=== PATIENT | male | born 1975 | race Caucasian/White ===

== ENCOUNTER → 2022-06-30 | Outpatient (CLI) | payer OTHER ==
--- NOTE | 2022-06-30 12:13 | Diagnostic Imaging Report ---
Indication: Pain, post surgical follow-up COMPARISON: None available TECHNIQUE: 3 radiographs lumbar spine dated 06/30/2022. FINDINGS: For the sake of this examination, it appears there are 6 lumbar type vertebral bodies. Posterior fusion with bilateral pedicle screws and associated interbody disc device is present at the L5/L6 level. No evidence of hardware complication. Stimulator device is present with the leads extending to overlie the central spinal canal extending superiorly outside the [id number]. Alignment of the lumbar spine is well maintained. Vertebral body heights are well-maintained. Moderate disc space height loss at L6/S1. Moderate disc space height loss with postsurgical changes at L5/L6. The sacroiliac joints are intact. No new fracture or dislocation. No destructive osseous process. IMPRESSION: 6 lumbar type vertebral bodies are suggested on this examination with postsurgical changes at L5/L6 without hardware complication or acute osseous abnormality. Additional postsurgical and mild degenerative changes as described above. Dictated by: Dictated on workstation # [id number]
--- NOTE | 2022-06-30 12:16 | Diagnostic Imaging Report ---
INDICATION: Pain COMPARISON: None available TECHNIQUE: 4 radiographs of bilateral knees dated 06/30/2022. FINDINGS: Right: No acute fracture or dislocation. No destructive osseous process. Joint spaces are well maintained. No significant osteophytosis. No knee joint effusion. No suspicious radiopaque foreign body. Left: No acute fracture or dislocation. No destructive osseous process. Mild medial joint space narrowing with minimal osteophytosis. Lateral compartment is well maintained. Tiny osseous excrescence measuring 0.8 cm is seen arising from the posterior aspect of the fibular neck which appears to be in continuity with the cortex and underlying medullary cavity without associated periosteal reaction. No knee joint effusion. No suspicious radiopaque foreign body. IMPRESSION: No acute osseous abnormality with minimal degenerative changes, greatest within the medial compartment of the left knee. Small osseous excrescence arising from the left fibular neck posteriorly is felt to relate to an osteochondroma. Dictated by: Dictated on workstation # [id number]
== END ==
LOC: RAD 09:48
PROVIDERS: ATTEND Family Medicine
DX: Z02.71 Encounter for disability determination (principal); M54.50 Low back pain, unspecified; M25.561 Pain in right knee; M25.562 Pain in left knee
CPT/HCPCS: 72100

== ENCOUNTER 2023-06-07 15:43 | Emergency (ER) | payer OTHER ==
[2023-06-07 16:25] LABS: BASOPHILS % (AUTO) 1 % (0-10); EOSINOPHILS # (AUTO) 0.2 10^3/uL (0.0-0.3); EOSINOPHILS % (AUTO) 3 % (0-10); HEMATOCRIT 44 % (40-54); HEMOGLOBIN 14.8 g/dL (13.3-17.7); LYMPHOCYTES # (AUTO) 2.2 10^3/uL (1.0-4.0); LYMPHOCYTES % (AUTO) 33 % (12-44); MEAN CORPUSCULAR HEMOGLOBIN 30 pg (25-34); MEAN CORPUSCULAR HGB CONC 34 g/dL (32-36); MEAN CORPUSCULAR VOLUME 88 fL (80-99); MEAN PLATELET VOLUME 10.4 fL (9.0-12.2); MONOCYTES # (AUTO) 0.4 10^3/uL (0.0-1.0); MONOCYTES % (AUTO) 6 % (0-12); NEUTROPHILS # (AUTO) 3.8 10^3/uL (1.8-7.8); NEUTROPHILS % (AUTO) 57 % (42-75); PLATELET COUNT 197 10^3/uL (130-400); WHITE BLOOD COUNT 6.6 10^3/uL (4.3-11.0)
[2023-06-07 16:31] LABS: BILIRUBIN,URINE NEGATIVE (NEGATIVE); CLARITY,URINE CLEAR; COLOR,URINE YELLOW; GLUCOSE, URINE (UA) NEGATIVE (NEGATIVE); KETONES,URINE NEGATIVE (NEGATIVE); LEUKOCYTE ESTERASE ,URINE NEGATIVE (NEGATIVE); NITRITE,URINE NEGATIVE (NEGATIVE); PROTEIN,URINE NEGATIVE (NEGATIVE)
[2023-06-07 16:39] LABS: BACTERIA,URINE NEGATIVE /HPF; WBC,URINE RARE /HPF
[2023-06-07 16:42] LABS: AMPHETAMINE SCREEN, URINE NEGATIVE (NEGATIVE); BARBITURATE SCREEN URINE NEGATIVE (NEGATIVE); BENZODIAZEPINES SCREEN URINE NEGATIVE (NEGATIVE); CANNABINOID SCREEN, URINE POSITIVE (NEGATIVE); COCAINE SCREEN URINE NEGATIVE (NEGATIVE); METHADONE STAT NEGATIVE (NEGATIVE); OPIATE SCREEN URINE NEGATIVE (NEGATIVE); OXYCODONE STAT NEGATIVE (NEGATIVE); PROPOXYPHENE STAT NEGATIVE (NEGATIVE); TRICYCLIC ANTIDEPRESSANTS SCRE NEGATIVE (NEGATIVE)
[2023-06-07 16:45] LABS: CHLORIDE 105 MMOL/L (98-107); POTASSIUM 3.5 MMOL/L (3.6-5.0); SODIUM 142 MMOL/L (135-145)
[2023-06-07 16:46] LABS: ALANINE AMINOTRANSFERASE 17 U/L (0-55); ALBUMIN 4.5 GM/DL (3.2-4.5); ALKALINE PHOSPHATASE 83 U/L (40-136); BILIRUBIN,TOTAL 0.2 MG/DL (0.1-1.0); BUN/CREATININE RATIO 8; CALCIUM 9.7 MG/DL (8.5-10.1); CARBON DIOXIDE 27 MMOL/L (21-32); CREATININE SERUM 0.74 MG/DL (0.60-1.30); GFR ESTIMATED 112; GLUCOSE 85 MG/DL (70-105); SALICYLATE < 0.3 MG/DL (5.0-20.0); TOTAL PROTEIN 6.9 GM/DL (6.4-8.2)
[2023-06-07 16:47] LABS: ACETAMINOPHEN < 10 UG/ML (10-30)
--- NOTE | 2023-06-07 17:01 | ED Psychosocial ---
General Chief Complaint: Psych/Social Disorder Stated Complaint: PSYCH Nursing Triage Note: Patient presents to the ED via EMS from [facility] with c/o suicidal ideation. Patient reports SI for more than 6 months worsening over the past couple of days. States, "everything just keeps piling up." Patient reports plan to either "cut my wrists or shoot myself in the head". Sent to the ED for mental health evaluation. Source: patient, EMS, RN notes reviewed, EMS notes reviewed Exam Limitations: no limitations History of Present Illness Date Seen by Provider: Jun 07, 2023 Time Seen by Provider: 15:52 Initial Comments 47-year-old male patient with history of chronic back pain on disability and anxiety and depression brought in by EMS because of suicidal ideation. Patient was seen at [facility] and complaining of increasing suicidal ideation with plan to cut his wrist or using a gun and shoot himself in the head. Patient stated he does not have a gun but his daughter has a gun and he knew how to access to the gun. Patient states that everything just keeps piling up and he feels more suicidal when he has been suicidal for a long time. Patient stated he cut his wrist few weeks ago and was in mental hospital in 2008 with suicidal ideation. Patient states he has homicidal ideation and had idea to put him at the head of somebody, not special person in his mind. Patient denies hallucination. Patient admitted to smoke marijuana he stated his last 1 was 1 week ago. Patient admitted to drink alcohol occasionally. Patient complaining of chronic back and extremities pain and currently wearing Butrans patch. Allergies and Home Medications Allergies Coded Allergies: No Known Drug Allergies (Unverified , 06/07/23) Patient Home Medication List Home Medication List Reviewed: Yes Review of Systems Constitutional: no symptoms reported EENTM: no symptoms reported Respiratory: no symptoms reported Cardiovascular: no symptoms reported Gastrointestinal: no symptoms reported Genitourinary: no symptoms reported Musculoskeletal: see HPI Skin: no symptoms reported Psychiatric/Neurological: See HPI All Other Systems Reviewed Negative Unless Noted: Yes Past Lujelcv-Lqlcmm-Vcfnfi Hx Patient Social History Tobacco Use?: Yes Tobacco type used: Cigarettes Smoking Status: Current Everyday Smoker Use of E-Cig and/or Vaping dev: No Substance use?: Yes Substance type: Marijuana Substance frequency: Once in a while Alcohol Use?: Yes Alcohol Frequency: Once in a while Pt feels they are or have been: No Immunizations Up To Date First/Initial COVID19 Vaccinat: YES Second COVID19 Vaccination Castillo: YES Past Medical History Surgery/Hospitalization HX: Anxiety; Depression; HX suicidal ideation Nursing Suicide Risk Notes: Patient reports suicidal ideation for many months but reports worsening thoughts over the past couple of days. Has been working with [facility] for mental health. When asked if he has a plan he stated, "I would either cut my wrists or shoot myself in the head." Denies having a gun but does state he knows where he could access one. Superficial lacerations to his right wrist in various stages of healing. Physical Exam Vital Signs - First Documented 06/07/23 15:43 Temp 36.5 Pulse 89 Resp 16 B/P (MAP) 142/96 (111) Pulse Ox 98 O2 Delivery Room Air Capillary Refill : Less Than 3 Seconds Height, Weight, BMI Height: '" Weight: lbs. oz. kg; BMI Method: General Appearance: WD/WN, no apparent distress HEENT: PERRL/EOMI, normal ENT inspection Neck: non-tender, full range of motion Respiratory: chest non-tender, lungs clear, normal breath sounds, no respiratory distress, no accessory muscle use Cardiovascular: regular rate, rhythm, no edema, no gallop, no JVD Gastrointestinal: normal bowel sounds, non tender, soft Extremities: normal range of motion, non-tender Neurologic/Psychiatric: alert, normal mood/affect, oriented x 3 Appearance/Memory: appropriate appearance, appropriate insight, neat, no memory impairment Behavior/Eye Contact: cooperative, good eye contact, normal speech Thoughts/Hallucinations: normal thought pattern Skin: normal color, warm/dry, other (Right wrist with scars of self-cutting and several old abrasions) Lymphatic: no adenopathy Progress/Results/Core Measures Results/Orders Lab Results Laboratory Tests Test 06/07/23 15:52 06/07/23 16:00 06/07/23 16:27 Range/Units White Blood Count 6.6 4.3-11.0 10^3/uL Red Blood Count 4.95 4.30-5.52 10^6/uL Hemoglobin 14.8 13.3-17.7 g/dL Hematocrit 44 40-54 % Mean Corpuscular Volume 88 80-99 fL Mean Corpuscular Hemoglobin 30 25-34 pg Mean Corpuscular Hemoglobin Concent 34 32-36 g/dL Red Cell Distribution Width 12.1 10.0-14.5 % Platelet Count 197 130-400 10^3/uL Mean Platelet Volume 10.4 9.0-12.2 fL Immature Granulocyte % (Auto) 0 % Neutrophils (%) (Auto) 57 42-75 % Lymphocytes (%) (Auto) 33 12-44 % Monocytes (%) (Auto) 6 0-12 % Eosinophils (%) (Auto) 3 0-10 % Basophils (%) (Auto) 1 0-10 % Neutrophils # (Auto) 3.8 1.8-7.8 10^3/uL Lymphocytes # (Auto) 2.2 1.0-4.0 10^3/uL Monocytes # (Auto) 0.4 0.0-1.0 10^3/uL Eosinophils # (Auto) 0.2 0.0-0.3 10^3/uL Basophils # (Auto) 0.0 0.0-0.1 10^3/uL Immature Granulocyte # (Auto) 0.0 0.0-0.1 10^3/uL Sodium Level 142 135-145 MMOL/L Potassium Level 3.5 L 3.6-5.0 MMOL/L Chloride Level 105 98-107 MMOL/L Carbon Dioxide Level 27 21-32 MMOL/L Anion Gap 10 5-14 MMOL/L Blood Urea Nitrogen 6 L 7-18 MG/DL Creatinine 0.74 0.60-1.30 MG/DL Estimat Glomerular Filtration Rate 112 BUN/Creatinine Ratio 8 Glucose Level 85 70-105 MG/DL Calcium Level 9.7 8.5-10.1 MG/DL Corrected Calcium 9.3 8.5-10.1 MG/DL Total Bilirubin 0.2 0.1-1.0 MG/DL Aspartate Amino Transf (AST/SGOT) 12 5-34 U/L Alanine Aminotransferase (ALT/SGPT) 17 0-55 U/L Alkaline Phosphatase 83 40-136 U/L Total Protein 6.9 6.4-8.2 GM/DL Albumin 4.5 3.2-4.5 GM/DL Salicylates Level < 0.3 L 5.0-20.0 MG/DL Acetaminophen Level < 10 L 10-30 UG/ML Serum Alcohol < 10 <10 MG/DL Urine Color YELLOW Urine Clarity CLEAR Urine pH 7.0 5-9 Urine Specific [place] <=1.005 1.016-1.022 Urine Protein NEGATIVE NEGATIVE Urine Glucose (UA) NEGATIVE NEGATIVE Urine Ketones NEGATIVE NEGATIVE Urine Nitrite NEGATIVE NEGATIVE Urine Bilirubin NEGATIVE NEGATIVE Urine Urobilinogen 0.2 < = 1.0 MG/DL Urine Leukocyte Esterase NEGATIVE NEGATIVE Urine RBC (Auto) NEGATIVE NEGATIVE Urine RBC NONE /HPF Urine WBC RARE /HPF Urine Squamous Epithelial Cells NONE /HPF Urine Crystals NONE /LPF Urine Bacteria NEGATIVE /HPF Urine Casts NONE /LPF Urine Mucus NEGATIVE /LPF Urine Culture Indicated NO Urine Opiates Screen NEGATIVE NEGATIVE Urine Oxycodone Screen NEGATIVE NEGATIVE Urine Methadone Screen NEGATIVE NEGATIVE Urine Propoxyphene Screen NEGATIVE NEGATIVE Urine Barbiturates Screen NEGATIVE NEGATIVE Ur Tricyclic Antidepressants Screen NEGATIVE NEGATIVE Urine Phencyclidine Screen NEGATIVE NEGATIVE Urine Amphetamines Screen NEGATIVE NEGATIVE Urine Methamphetamines Screen NEGATIVE NEGATIVE Urine Benzodiazepines Screen NEGATIVE NEGATIVE Urine Cocaine Screen NEGATIVE NEGATIVE Urine Cannabinoids Screen POSITIVE H NEGATIVE SARS-CoV-2 RNA (RT-PCR) Not Detected Not Detecte My Orders Orders - CINTIA BRADEN MD Ua Culture If Indicated (06/07/23 16:01) Cbc With Automated Diff (06/07/23 16:01) Comprehensive Metabolic Panel (06/07/23 16:01) Alcohol (06/07/23 16:01) Drug Screen Stat (Urine) (06/07/23 16:01) Acetaminophen (06/07/23 16:01) Salicylate (06/07/23 16:01) Bh Status Checks/Observation O Q15M (06/07/23 16:01) Covid 19 Inhouse Test (06/07/23 16:51) Alprazolam Tablet (Alprazolam Tablet) (06/07/23 18:00) Medications Given in ED Current Medications Medications Dose Ordered Sig/Codie Route Start Time Stop Time Status Last Admin Dose Admin Alprazolam 0.5 mg ONCE ONCE PO 06/07/23 18:00 06/07/23 18:01 DC 06/07/23 18:00 0.5 MG Vital Signs/I&O 06/07/23 15:43 Temp 36.5 Pulse 89 Resp 16 B/P (MAP) 142/96 (111) Pulse Ox 98 O2 Delivery Room Air Blood Pressure Mean: 111 Progress Progress Note : Progress Note Patient with complaining of suicidal ideation with plan for a long time that getting worse recently. Patient had unremarkable physical exam and labs except for potassium of 3.5. Patient was cooperative but at the time of evaluation he became anxious and treated with Xanax 0.5 mg with improvement of his condition. Patient had evaluation by psychiatric precision agronomist and had criteria for inpatient treatment. Dr. Bowen Mckee on-call psychiatric at [facility] accepted patient via psychiatric admission coordinator at 2238. Patient informed about plan of care and is for transfer and all questions was addressed. Departure Impression Primary Impression: Suicidal ideations Additional Impressions: Homicidal ideation Marijuana use Hypokalemia Anxiety Disposition: 65 XFER TO PSYCH HOSP/UNIT ([facility]) Condition: Stable Transfer [facility] Medically Cleared for Xfer: Yes Transfer Reason: Exceeds level of care (Psychiatric hospital) Time Spoke to Accepting Phy: 22:[address] Bowen Mckee accepted admission at 2238 via psychiatric admission coordinator. Transfer Time: 22:45 Transfer Facility: [facility] Method of Transfer: EMS CINTIA BRADEN MD Jun 07, 2023 17:01
[2023-06-07] MEDS ORDERED: ALPRAZolam 0.5 MG TABLET PO ONE (18:00)
[2023-06-08] MEDS ORDERED: IBUPROFEN 800 MG TABLET PO ONE
[2023-06-08 00:50] VITALS: BP 142/96
== END 2023-06-08 00:50 ==
LOC: EDUNIT# 15:43 → ER FS 15:43
DX: R45.851 Suicidal ideations (principal); R45.850 Homicidal ideations; E87.6 Hypokalemia; F41.9 Anxiety disorder, unspecified; F12.90 Cannabis use, unspecified, uncomplicated; F17.210 Nicotine dependence, cigarettes, uncomplicated; Z20.822 Contact with and (suspected) exposure to COVID-19
CPT/HCPCS: 36415; 80053; 80306; 80320; 80329; 81000; 85025; 87636